=== PATIENT | female | born 1995 | race Caucasian/White ===

== ENCOUNTER 2018-04-13 09:14 | Outpatient (CLI) ==
--- NOTE | 2018-04-13 10:33 | US ---
EXAM: Bilateral lower extremity venous Doppler History: Bilateral lower extremity pain and swelling, history of deep venous thrombosis. Comparison: Left lower extremity venous Doppler 04/10/2018 Technique: Multiple sonographic images through the bilateral lower extremities were obtained. Color duplex Doppler was used to interrogate vascular flow. Findings: The bilateral common femoral, greater saphenous, profunda, superficial femoral, popliteal, peroneal, posterior tibial and anterior tibial veins demonstrate spontaneous flow with normal compre ssion and normal augmentation. No obvious thrombus is seen within the lesser saphenous veins. Impression: No venous thrombosis identified
== END 2018-04-13 09:15 | disposition home or self-care (01) ==
LOC: RAD 09:14
PROVIDERS: ATTEND Internal Medicine
DX: D68.59 Other primary thrombophilia (principal); Z86.718 Personal history of other venous thrombosis and embolism; Z79.01 Long term (current) use of anticoagulants; Z98.890 Other specified postprocedural states

== ENCOUNTER 2018-06-29 09:00 | Outpatient (CLI) ==
--- NOTE | 2018-06-29 10:09 | DI ---
EXAM: RIGHT SHOULDER HISTORY: Right shoulder pain FINDINGS: Right shoulder three-view. Bone and joint structures are within normal limits. There is no joint dislocation or fracture identified. Bone density and soft tissues are unremarkable. IMPRESSION: Within normal limits.
--- NOTE | 2018-06-29 10:09 | US ---
EXAM: Right upper extremity venous Doppler History: Right arm pain. Technique: Multiple sonographic images through the right upper extremity were obtained. Color duple x Doppler was used to interrogate vascular flow. Findings: The right internal jugular, subclavian, axillary, brachial, cephalic, basilic, radial and ulnar veins demonstrate spontaneous flow with normal compression and normal augmentation. Impression: No sonographic evidence for deep venous thrombosis
--- NOTE | 2018-06-29 10:11 | DI ---
EXAM: CERVICAL SPINE, 5 VIEWS HISTORY: Neck and shoulder pain. FINDINGS: Frontal view reveals no scoliosis. Lateral masses of C1-C2 are normally aligned and the o dontoid process is intact. Lateral views of the spine demonstrate normal alignment without spondyl olisthesis. Vertebral body height and disc spaces appear normal. Facet joints are normally placed a nd prevertebral soft tissues normal thickness. Oblique views reveal no bony encroachment upon the ne ural foramina. IMPRESSION: Unremarkable exam.
== END 2018-06-29 09:01 | disposition home or self-care (01) ==
LOC: RAD 09:00
PROVIDERS: ATTEND Internal Medicine
DX: M25.511 Pain in right shoulder (principal); M79.601 Pain in right arm; Z86.718 Personal history of other venous thrombosis and embolism

== ENCOUNTER 2018-07-21 08:26 | Outpatient (POV) | END 2018-07-21 17:00 | LOC: OUTPT 08:26 | PROVIDERS: ATTEND Otolaryngology | DX: R42 Dizziness and giddiness (principal) ==